=== PATIENT | male | born 1970 | race Caucasian/White ===

== ENCOUNTER 2024-01-28 22:00 | Emergency (ER) | payer OTHER ==
[~2024-01-28] VITALS: Ht 180.3 cm; Wt 117.9 kg
[2024-01-29 01:13] VITALS: BP 129/75; TEMP 98; O2SAT 98
== END 2024-01-29 01:14 | disposition home or self-care (01) ==
LOC: ER 22:17
DX: T59.891A Toxic effect of other specified gases, fumes and vapors, accidental (unintentional), initial encounter (principal); R20.8 Other disturbances of skin sensation; F41.9 Anxiety disorder, unspecified; Y92.89 Other specified places as the place of occurrence of the external cause
CPT/HCPCS: 71045-TC